=== PATIENT | female | born 1995 | race American Indian/Alaskan Native ===

== ENCOUNTER 2019-01-09 12:56 | Emergency (ER) | payer SELFPAY ==
[2019-01-09 13:21] VITALS: BP 132/81
--- NOTE | 2019-01-09 13:21 | Emergency Department Report ---
Chief Complaint: Skin Rash Stated Complaint: BUTTOCK IRRITATION Time Seen by Provider: 01/09/19 13:20 - HPI History of Present Illness: This is a 23 y.o. F. that presents to the ER with a rash to right buttocks since yesterday. Reports pruritus to area. Mom states her spouse noticed it yesterday. She denies vaginal discharge, abdominal pain, urinary urgency, frequency, or dysuria. - ROS Review of Systems: Skin: pruritic rash to right buttock - Exam Vital Signs: Vital Signs 01/09/19 13:18 Temperature 98.3 F Pulse Rate 92 H Respiratory 20 Rate Blood Pressure 132/81 O2 Sat by Pulse 98 Oximetry Physical Exam: GENERAL APPEARANCE: The patient is a 38-year-old well-developed, well-nourished female in no acute distress. NECK: Supple. Trachea is midline. No evidence of thyroid enlargement. No lymphadenopathy or tenderness. CHEST: Symmetric. Nontender to palpation. LUNGS: Breath sounds are equal and clear bilaterally. No wheezes, rhonchi, or rales. HEART: Regular rate and rhythm with normal S1 and S2. No murmurs, gallops, or rubs. EXTREMITIES: No cyanosis, clubbing, or edema. NEUROLOGIC: No focal sensory or motor deficits are noted. Gait is normal. Cranial nerves II through XII are intact. Deep tendon reflexes are intact. PSYCHIATRIC: The patient is awake, alert, and oriented x3. Recent and remote memory is intact. Appropriate mood and affect. SKIN: Erythematous maculopapular rash to right buttocks, blanchable, no surrounding cellulitis, warm, dry, and well perfused. Good turgor. MSE screening note: Focused history and physical exam performed. Due to findings the following was ordered: ED Medical Decision Making - Medical Decision Making This patient was seen by this provider. Vitals are stable and patient is in no acute distress. There is a erythematous maculopapular rash to right buttock which appear to be contact dermatitis. Start nystatin/triamcinolone cream. Follow up with PCP for continued care. Patient discharged home stable. ED Disposition for MSE Clinical Impression: Pruritic rash Contact dermatitis Qualifiers: Contact dermatitis type: irritant Contact dermatitis trigger: unspecified trigger Qualified Code(s): L24.9 - Irritant contact dermatitis, unspecified cause Disposition: DC-01 TO HOME OR SELFCARE Is pt being admited?: No Does the pt Need Aspirin: No Condition: Stable Instructions: Acute Rash (ED), Contact Dermatitis (ED) Prescriptions: Nystatin/Triamcin [Nystatin-Triamcinolone Cream] 15 gm TP BID #1 cream..g. Referrals: [facility] [Outside] - 3-5 Days [facility] [Outside] - 3-5 Days [facility] [Outside] - 3-5 Days Time of Disposition: 13:54
== END 2019-01-09 14:01 | disposition home or self-care (01) ==
LOC: ED 12:56
DX: L24.9 Irritant contact dermatitis, unspecified cause (principal)
CPT/HCPCS: 99282